=== PATIENT | male | born 1990 | race Native Hawaiian/Other Pacific Islander ===

== ENCOUNTER 2016-06-09 01:38 | Emergency (ER) | payer OTHER ==
[~2016-06-09] VITALS: Ht 177.8 cm; Wt 81.6 kg
[2016-06-09 02:14] LABS: POTASSIUM 3.2 mmol/L (3.6-5.2); SODIUM 135 mmol/L (136-145)
[2016-06-09 02:17] LABS: PLATELET COUNT 197 K/uL (142-355)
[2016-06-09 02:49] VITALS: BP 140/88; TEMP 98.8
== END 2016-06-09 02:53 | disposition home or self-care (01) ==
LOC: ED 01:38
DX: R07.89 Other chest pain (principal); S29.011A Strain of muscle and tendon of front wall of thorax, initial encounter; R00.0 Tachycardia, unspecified; X50.9XXA Other and unspecified overexertion or strenuous movements or postures, initial encounter
CPT/HCPCS: 36415; 80053; 82550; 84484; 85027; 85610; 85730; 86318; 99283